=== PATIENT | male | born 1985 | race Caucasian/White ===

== ENCOUNTER 2019-02-26 15:49 | Emergency (ER) | payer MEDICAID ==
[~2019-02-26] VITALS: Ht 177.8 cm; Wt 86.2 kg
[2019-02-26 15:50] VITALS: BP_SYST 140
--- NOTE | 2019-02-26 15:50 | NUR ---
BROUGHT BACK TO BED #4 AND TRIAGED. REPORT GIVEN TO ROMAN
--- NOTE | 2019-02-26 16:04 | NUR ---
Patient is awake, alert, and oriented x3. Patient speech is slurred. He states he wants to detox from alcohol. His only complaint is nausea at this time.
--- NOTE | 2019-02-26 16:05 | NUR ---
ER Dr. Vincent at bedside examining patient.
[2019-02-26] MEDS ORDERED: THIAMINE HCL 500 MG in NS 50 ML IV ONE (16:15)
[2019-02-26] MEDS: NACL 0.9% 2,000 ML IV ONE (16:30)
[2019-02-26] MEDS: MAGNESIUM SULFATE 50 ML IV ONE (16:30)
[2019-02-26 16:45] LABS: BASOPHILS # (AUTO) 0.2 K/uL (0.0-0.2); EOSINOPHILS % (AUTO) 0.5 % (0.0-4.0); HEMATOCRIT 48.1 % (36-54); HEMOGLOBIN 16.3 g/dL (14.0-18.0); LYMPHOCYTES # (AUTO) 1.1 K/uL (1.0-5.5); LYMPHOCYTES % (AUTO) 14.2 % (20.5-51.5); MEAN CORPUSCULAR HEMOGLOBIN 31 pg (27-31); MEAN CORPUSCULAR HGB CONC 34 % (32-36); MEAN CORPUSCULAR VOLUME 90 fL (79.0-98.0); MONOCYTES # (AUTO) 0.4 K/uL (0.0-1.0); MONOCYTES % (AUTO) 4.7 % (1.7-9.3); NEUTROPHILS # (AUTO) 6.2 K/uL (1.8-7.7); NEUTROPHILS % (AUTO) 78.6 % (40.0-70.0); PLATELET COUNT (AUTO) 201 K/uL (130-430); RED BLOOD CELL COUNT(AUTO) 5.36 MIL/uL (4.2-6.2); RED CELL DISTRIBUTION WIDTH 15.2 % (9.0-15.0); WHITE BLOOD COUNT (AUTO) 7.9 K/uL (4.8-10.8)
[2019-02-26 17:04] LABS: CALCIUM 8.8 mg/dL (8.4-11.0); CREATININE 1.09 mg/dL (0.55-1.30); POTASSIUM 3.3 mmol/L (3.5-5.1)
[2019-02-26 17:08] LABS: TOTAL BILIRUBIN 1.3 mg/dL (0.0-1.0)
[2019-02-26] MEDS: THIAMINE HCL 500 MG in NS 100 ML IV ONE (17:17)
[2019-02-26] MEDS: chlordiazePOXIDE HCL 25 MG CAPSULE PO ONE (17:17)
[2019-02-26 18:54] VITALS: BP_SYST 108
== END 2019-02-26 18:54 | disposition home or self-care (01) ==
LOC: SED 15:49
DX: F10.129 Alcohol abuse with intoxication, unspecified (principal); Y90.9 Presence of alcohol in blood, level not specified
CPT/HCPCS: 36415; 80053; 83690; 85025; 96365; 96366; 96375; 99283; J3475; J7030